=== PATIENT | female | born 1990 | race African-American/Black ===

== ENCOUNTER 2020-02-26 17:02 | Inpatient (IN) | payer OTHER ==
[~2020-02-26] VITALS: Ht 167.6 cm; Wt 112.5 kg
--- NOTE | ~2020-02-26 | HC ---
[facility] [place] [address] CONSULTATION Name: YESENIA ANGEL Room #: 457-P ADM IN M.R.#: [id number] Admission: 02/26/20 Attend Phys: Yousuf Del Castillo MD Discharge: Date of : 89 Report #: [id number] THIS REPORT FOR: cc: JONNATHAN - No family physician/PCP FAM - No family physician/PCP Uriel Bee DPM ~ CC: [facility] physician/PCP Yousuf Del Castillo DATE OF SERVICE: 02/27/2020 ADMISSION DIAGNOSIS: Left foot infection. CHIEF COMPLAINT/HISTORY OF PRESENT ILLNESS: The patient is a 29-year-old female who stepped on a nail roughly 1 week ago. She was walking in sandals and stepped on a samara nail penetrate that was attached to a piece of wood from a fallen over fence. She was seen as an outpatient at three different facilities and was prescribed p.o. Levaquin without any improvement. She did have a tetanus shot. She presented to the Emergency Department at [facility] yesterday with increased pain, swelling, and erythema. She denies fevers, chills or malaise. Foot x-ray was negative for abscess or osteomyelitis. Her blood cultures are pending. She denies type 2 diabetes mellitus. She is currently on parenteral vancomycin and Zosyn with good tolerance. She rates her pain at a 7/10, she is on oral hydrocodone and parenteral morphine. LABORATORY DATA: WBC 14.2, RBC 3.58, hemoglobin 11.9, hematocrit 34.5, platelets 288. BUN 5, creatinine 0.9, and glucose 100. PHYSICAL EXAMINATION: Temperature 98.1, pulse 92, respirations 18, blood pressure 153/80. There is a small puncture wound to the left plantar forefoot near the second MTP joint. The area is red, swollen and exquisitely painful to the touch. The inflammation extends to the dorsal distal foot. She has palpable dorsalis pedis and posterior tibial pulses bilaterally. IMPRESSION: Abscess with left foot from a puncture wound. PLAN: Consent was signed for bedside incision and drainage of the left foot. I anesthetized the area with 28 mL of 1% lidocaine with epinephrine. The patient was given a bolus of 2 mg of morphine prior to the injection. Once anesthesia was achieved, I performed a sterile betadine prep and performed a longitudinal incision over the puncture wound site. I expressed roughly 2 mL of fluid including some of the local anesthetic I had injected. I debrided the sloughed epidermis and there was some necrotic infected tissue on the dermal layer. I performed a thorough debridement and irrigated the area with saline. I performed a small stab puncture near the second MTP and I was unable to express any purulence or drainage from the intermetatarsal space or near the joint. The [address] [address] CONSULTATION Name: YESENIA ANGEL Room #: 457-P [facility] IN M.R.#: [id number] Admission: 02/26/20 Attend Phys: Yousuf Del Castillo MD Discharge: Date of : 92 Report #: [id number] foot was cleansed and dried and I dressed it with Xeroform, ABDs, Kerlix, and Maximus bandage. I will follow the patient tomorrow and perform a dressing change. She is to remain nonweightbearing to the left foot and elevate. I did perform an aerobic swab culture of the area. By: [id number] Uriel Bee DPM /nt
--- NOTE | ~2020-02-26 | HC ---
[facility] [place] [address] CONSULTATION Name: YESENIA ANGEL Room #: 457-P ADM IN M.R.#: [id number] Admission: 02/26/20 Attend Phys: Yousuf Del Castillo MD Discharge: Date of : 92 Report #: [id number] THIS REPORT FOR: cc: JONNATHAN - No family physician/PCP FAM - No family physician/PCP Uriel Bee DPM ~ CC: [facility] physician/PCP Yousuf Del Castillo DATE OF SERVICE: 02/29/2020 CHIEF COMPLAINT: Followup incision and drainage, left foot puncture wound. Currently, growing Staphylococcus aureus with sensitivity pending. The patient attempted leaving the hospital yesterday, and her IV was pulled. She currently is leaving the hospital AMA. She was on parenteral vancomycin and Zosyn prior to her attempting to leave. Nicolle the wound care nurse performed the dressing change yesterday. No new labs for review. PHYSICAL EXAMINATION: There is decreased erythema and swelling to the left foot. The wound bed has red granulation, no exposed bone, tendon or joint. No underlying fluctuance or crepitation. The area is painful to palpation. There is some erythema extending to the dorsal distal foot. No pallor or cyanosis. She has strong dorsalis pedis and posterior tibial pulses bilaterally. IMPRESSION: Puncture wound with tissue infection, Staphylococcus aureus. PLAN: I recommend the patient remain hospitalized on parenteral antibiotics. I would recommend MRI for further evaluation. She does not want to stay and is adamant about leaving AM. I explained that she will likely have to be rehospitalized and is risking her foot in terms of further infection and possible osteomyelitis. She does not want to stay and she is getting ready to leave currently while I was in the room. I advised her to remain so we could obtain an MRI and further antibiotics and get final culture results, but she refuses. By: [id number] Uriel Bee, EZE /nt
[2020-02-26 17:02] VITALS: BP 123/87
[2020-02-26 19:11] LABS: URINE BILIRUBIN NEGATIVE (Negative); URINE BLOOD 1+ (Negative); URINE CLARITY CLEAR; URINE COLOR YELLOW; URINE GLUCOSE-RANDOM* NEGATIVE (Negative); URINE KETONES NEGATIVE (Negative); URINE LEUKOCYTES-REFLEX NEGATIVE (Negative); URINE NITRITE-REFLEX NEGATIVE (Negative); URINE PROTEIN (DIPSTICK) NEGATIVE (Negative); URINE SPECIFIC GRAVITY 1.025 (1.005-1.035); URINE UROBILINOGEN 0.2 E.U./dl (0.2-1.0)
[2020-02-26 19:31] LABS: SQUAMOUS 0-3 Few /LPF (0-3)
[2020-02-26 19:32] LABS: BACTERIA-REFLEX 1-9 Few /HPF (None Seen); CASTS None Seen /LPF (None Seen); CRYSTALS None Seen /LPF (None Seen); URINE RBC 0-2 Rare /HPF (0-2); URINE WBC-REFLEX 0-5 Rare /HPF (0-5)
[2020-02-26 20:46] LABS: BASOPHILS 0.4 % (0.0-2.0); EOSINOPHILS 0.9 % (0.0-3.0); HEMOGLOBIN 12.5 gm/dL (12.0-15.0); LYMPHOCYTES 9.4 % (24.0-44.0); MCH 32.3 pg (26.0-34.0); MCHC 33.9 g/dL (28.0-37.0); MCV 95.4 fL (80.0-100.0); MONOCYTES 9.2 % (1.0-8.0); PLATELET COUNT 312 thou/uL (150-400); POLYS 80.1 % (36.0-66.0); RBC 3.88 mil/uL (4.20-5.00); RDW 13.8 % (10.5-14.5); WBC 17.5 thou/uL (4.0-11.0)
[2020-02-26 20:52] LABS: CALCIUM 8.8 mg/dL (8.5-10.1); CREATININE 1.1 mg/dL (0.6-1.0); POTASSIUM 3.8 mmol/L (3.5-5.1)
[2020-02-26 20:58] LABS: ALBUMIN 3.5 g/dL (3.4-5.0); DIRECT BILIRUBIN 0.2 mg/dL (<0.1-0.2); TOTAL BILIRUBIN 1.1 mg/dL (0.2-1.0); TOTAL PROTEIN 7.7 g/dL (6.4-8.2)
[2020-02-26] MEDS ORDERED: VIT C GUMMIES PO (21:06)
[2020-02-26] MEDS ORDERED: tylenol pm PO (21:06)
[2020-02-26 21:44] VITALS: BP 131/71
[2020-02-26 22:24] VITALS: BP 108/54
--- NOTE | 2020-02-27 03:18 | NUR ---
VSS-AFEBRILE. ALERT AND ORIENTED X 4, LUNGS CLEAR-ROOM AIR. C/O LEFT FOOT PAIN THAT IS PARTIALLY RELIEVED WITH IV AND PO PAIN MEDICATIONS. LEFT FOOT IS ERYTHEMIC AND EDEMATOUS (2+). RESTED WELL THROUGH NIGHT WITH FEW NEEDS. ELEVATED LEFT FOOT FOR COMFORT AND TO REDUCE SWELLING. FALL PRECAUTIONS IN PLACE, CALLS APPROPRIATELY FOR ANY NEEDED ASSISTANCE.
[2020-02-27 05:34] LABS: HEMATOCRIT 34.5 % (37.0-47.0); HEMOGLOBIN 11.9 gm/dL (12.0-15.0); MCH 33.2 pg (26.0-34.0); MCHC 34.5 g/dL (28.0-37.0); MCV 96.3 fL (80.0-100.0); RBC 3.58 mil/uL (4.20-5.00); RDW 13.9 % (10.5-14.5); WBC 14.2 thou/uL (4.0-11.0)
[2020-02-27 06:08] LABS: CALCIUM 8.9 mg/dL (8.5-10.1); CREATININE 0.9 mg/dL (0.6-1.0); MAGNESIUM 2.1 mg/dL (1.8-2.4); POTASSIUM 4.1 mmol/L (3.5-5.1)
[2020-02-27 07:03] VITALS: BP 104/46
--- NOTE | 2020-02-27 09:13 | NUR ---
chart review. cm discuss with hospitalist possible dc in few days, possible getting I & d. id md consult. on iv abx. cm visited with pt at bedside with own face mask and face shield on, intro to cm and transition of care. " live home with 2 young boys and sig other, their dad of 12 years. never had health issue. not currently working. 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 independent. no medical equip. no hh or rehab in past"/elisa. no anticipated needs will cont following as needed for dc needs.
[2020-02-27 13:20] VITALS: BP 153/80
--- NOTE | 2020-02-27 19:07 | NUR ---
Assumed patient are at 0715. Patient admitted due to Cellulitis of left leg and abcess of left foot due to stepping on a nail "a week or so ago." Patient has been "clock watching", calling for pain medications often. She is able to ambulate without putting full weight on left foot. Patient has been on IV Antibiotics without any adverse reactions. Vital signs stable, LSCTA on Room Air, ABD soft and non-tender, BS x's 4. 2+ pitting edema in left lower exteremity. NS is running at 100cc/hr.
[2020-02-27 20:24] VITALS: BP 128/63
--- NOTE | 2020-02-28 04:02 | NUR ---
VSS-AFEBRILE. RESTLESS THROUGH NIGHT, DIFFICULT TO CONTROL PAIN. ADMINISTERED PO AND IV PAIN MEDICATIONS, REWRAPPED LEFT FOOT TO EASE TIGHT BANDAGE, ELEVATED LEFT LEG, AND PAIN WAS ONLY SLIGHLTY EASED. PO NORCO DOSE WAS DOUBLED FOR FUTURE DOSES WELL. FALL PRECAUTIONS IN PLACE, CALLS APPROPRIATLEY FOR ANY NEEDED ASSISTANCE.
[2020-02-28 06:43] LABS: HEMATOCRIT 31.4 % (37.0-47.0); HEMOGLOBIN 10.5 gm/dL (12.0-15.0); MCH 32.7 pg (26.0-34.0); MCHC 33.6 g/dL (28.0-37.0); MCV 97.5 fL (80.0-100.0); RBC 3.22 mil/uL (4.20-5.00); RDW 14.1 % (10.5-14.5); WBC 8.3 thou/uL (4.0-11.0)
[2020-02-28 06:56] LABS: CALCIUM 8.4 mg/dL (8.5-10.1); POTASSIUM 4.4 mmol/L (3.5-5.1)
[2020-02-28 08:07] VITALS: BP 122/66
--- NOTE | 2020-02-28 11:45 | NUR ---
discussed with hospitalist, possible dc home today or over the weekend after podiatry see pt foot again after the bedside tx yesterday. on iv abx and will be changed to po abx. dcp: home no needs.
--- NOTE | 2020-02-28 11:49 | NUR ---
PT NOTICE MISSING OUT OF HER ROOM AT APPROXIMATELY 1010, SECURITY WAS CALLED AFTER LOOKING OVER THE UNIT FOR THE PT. DR SAUL WAS PAGED. DR SAUL REPLIED THE PT MENTIONED SHE WANTED NEED TO GO OUT FOR SOME FRESH AIR. DR SAUL REPLIED TO THE PT, NOT TO GO ANYWHERE. PT WAS FOUND A SHORT TIME LATER BEING WHEELED BACK TO HER ROOM AT 1107. PT WAS TOLD NOT TO NOTIFY STAFF BEFORE LEAVING THE ROOM, BECAUSE IT IS UNEXCEPTABLE TO LEAVE WITHOUT NOTIFING STAFF FIRST. PT IS A&OX4, VSS, AMBULATES WITH ONE PERSON ASSIST. PT C/O PAIN MEDS NOT WORKING. PT DRESSING CLEAN AND DRY, NO NEW WOUNDS, CONTINENT TO BOWEL AND BLADDER. PT IS ON REGULAR DIET. HYDROCODONE D/C'D AND OXYCODONE STARTED. FALL PRECAUTIONS IN PLACE, WILL CONTINUE TO MONITOR.
[2020-02-28 12:28] VITALS: BP 122/66
--- NOTE | 2020-02-28 14:57 | HC ---
[facility] [place] [address] CONSULTATION Name: YESENIA ANGEL Room #: 457-P ADM IN M.R.#: [id number] Admission: 02/26/20 Attend Phys: Yousuf Del Castillo MD Discharge: Date of : 92 Report #: [id number] THIS REPORT FOR: cc: JONNATHAN - No family physician/PCP JONNATHAN - No family physician/PCP Lakhwinder Jolly MD ~ CC: [facility] physician/PCP Yousuf Del Castillo DATE OF SERVICE: 02/27/2020 WOUND CARE CONSULTATION PERSONAL PHYSICIAN: Not on staff. CHIEF COMPLAINT: Left foot abscess. HISTORY OF PRESENT ILLNESS: This is a 29-year-old black female who is essentially healthy, who states approximately a week ago, she inadvertently stepped on a nail with sandals on and suffered a significant puncture wound to the plantar aspect of her left foot. The patient was seen in an urgent care where they prescribed oral Levaquin, but did not do any type of incision and drainage or any imaging studies. The patient states that pain and swelling has gotten progressively worse, which prompted her to come to the Emergency Department last evening. The patient at that time was evaluated and felt to have an abscess in the plantar aspect of the foot. The patient was admitted for IV antibiotics. Podiatry consultation did a consultation for us for wound care. The patient states that once again she is otherwise healthy, does not take any medicines on a regular basis. The patient denies any other wounds that she could not heal on her own. PAST MEDICAL HISTORY: Negative. PAST SURGICAL HISTORY: Negative. CURRENT MEDICATIONS: None. DRUG ALLERGIES: None. SOCIAL HISTORY: The patient smokes 1 pack of cigarettes daily for approximately 5 years. Drinks alcohol socially. FAMILY HISTORY: Not pertinent to current medical condition. REVIEW OF SYSTEMS: CONSTITUTIONAL: The patient denies fevers or chills. [facility] [address] [place] [address] CONSULTATION Name: YESENIA ANGEL Room #: 457-P [facility]#: [id number] Admission: 02/26/20 Attend Phys: Yousuf Del Castillo MD Discharge: Date of : 92 Report #: [id number] NEUROLOGIC: The patient denies numbness, tingling, weakness in arms or legs. EYES: No complaints. ENT: No complaints. CARDIAC: The patient has mild swelling in her left lower extremity but denies chest pain or palpitations. RESPIRATORY: The patient denies shortness of breath, cough or wheezes. GASTROINTESTINAL: The patient denies nausea, vomiting or abdominal pain. GENITOURINARY: The patient denies urgency or frequency. MUSCULOSKELETAL: The patient has pain in her left foot, plantar aspect. SKIN: There is what appears to be a subcutaneous abscess in plantar aspect of left foot. PHYSICAL EXAMINATION: VITAL SIGNS: Temperature 36.9, pulse 74, respirations 18, BP 104/46. GENERAL: This is an alert and oriented x 3, pleasant black female who is in mild distress secondary to pain. HEENT: Normocephalic, atraumatic. Mucous membranes are moist. Pupils are round. Sclerae white. NECK: Supple, nontender. LUNGS: Clear. HEART: Regular. ABDOMEN: Soft, nontender. EXTREMITIES: The patient moves all extremities without difficulty. Evaluation of left lower extremity reveals 1+ edema. There is 2+ dorsalis pedis and posterior tibial pulses. On the plantar aspect of the left foot, there appears to be a subcutaneous abscess which is exquisitely tender. There is essentially no drainage, it is somewhat fluctuant and warm to touch. No other associated wounds are noted. NEUROLOGIC: Cranial nerves 2-12 grossly intact. Motor and sensory grossly intact. LABORATORY VALUES: White count 14.2, hemoglobin 11.9, BUN 5, creatinine 0.9. Pro-calcitonin was normal. Albumin is 3.5. Serum test was negative. X-ray of the left foot shows no signs of foreign body. IMPRESSION: 1. Left foot plantar region abscess, status post puncture wound. 2. Cellulitis, left lower extremity secondary to #1. 3. History of tobaccoism. PLAN: At this time, I spoke at length with the patient. As stated, we will await the Podiatry consultation; however, at this time, it is obvious that the patient needs some form of an I and D to be performed whether this is done in Surgery with Podiatry or whether we could do it at the bedside by myself. We will continue with IV antibiotics as well as a Tubigrip for control of mild edema. I will talk to Podiatry about possibly imaging this area with ultrasound [address] [address] CONSULTATION Name: YESENIA ANGEL Room #: 457-P ADM IN M.R.#: [id number] Admission: 02/26/20 Attend Phys: Yousuf Del Castillo MD Discharge: Date of : 92 Report #: [id number] versus MRI. We will place Xeroform over the wound at this time and hold it in place with an ABD and Kerlix. We will continue to follow the patient. I appreciate the ability to consult. <ELECTRONICALLY SIGNED> By: Lakhwinder Jolly MD 02/28/20 1457 [id number] Lakhwinder Jolly MD /nt
[2020-02-28 16:28] VITALS: BP 143/68
[2020-02-28 20:10] VITALS: BP 147/68
--- NOTE | 2020-02-29 05:16 | NUR ---
PATIENT ALERT AND ORIENTED X4. UP ADLIB IN ROOM. MEDICATED FOR PAIN X2 AT TIME OF NOTE. DRESSING CHANGED BY THIS NURSE. IV REMAINS OUT PER DOCTOR. PATIENT ASKING FOR STRONGER PAIN MEDICATION, THIS NURSE REVIEWED MEDICATIONS.
[2020-02-29 08:58] VITALS: BP 109/53
[2020-02-29] MEDS ORDERED: AUGMENTIN 875-1 EACH PO (11:48)
[2020-02-29] MEDS ORDERED: PERCOCET 10-321 EACH PO (11:48)
[2020-02-29 12:01] VITALS: BP 109/53
--- NOTE | 2020-02-29 15:53 | NUR ---
ASSUMED PATIENT CARE AT 0700. A/O X4. REFUSED TO START IV . WANTS TAKE PO MEDS INSTEAD IV AND GO HOME AFTER DR SAUL CAME TALK TO PATIENT. DR LI BLACKMAN AT 1300 TO SEE PATIENT SHE STILL WANTS GO HIME. PATIENT LEFT AT 1315.
== END 2020-02-29 13:15 | disposition home or self-care (01) | DRG 571 ==
LOC: ER 17:02 → EROBS 21:34 → 4W 21:59
PROVIDERS: Nurse Practitioner; Nurse Practitioner Family; ADMIT Hospitalist; ATTEND Hospitalist
PROC: 0JBR0ZZ Excision of Left Foot Subcutaneous Tissue and Fascia, Open Approach (ICD-10-PCS; principal; 2020-02-27)
DX: L03.116 Cellulitis of left lower limb (principal); L02.612 Cutaneous abscess of left foot; N17.9 Acute kidney failure, unspecified; F17.210 Nicotine dependence, cigarettes, uncomplicated; R00.0 Tachycardia, unspecified; S99.822A Other specified injuries of left foot, initial encounter; W22.8XXA Striking against or struck by other objects, initial encounter; Y93.89 Activity, other specified; Y92.89 Other specified places as the place of occurrence of the external cause; Y99.8 Other external cause status; Z72.89 Other problems related to lifestyle
CPT/HCPCS: 10047